=== PATIENT | male | born 1970 | race Caucasian/White ===

== ENCOUNTER 2017-08-05 11:35 | Emergency (ER) | payer BC ==
--- NOTE | 2017-08-05 12:08 | EDM.PDOC ---
ED HPI GENERAL MEDICAL PROBLEM - General Chief Complaint: Neuro Symptoms/Deficits Stated Complaint: VISION PROBLEMS Time Seen by Provider: 08/05/17 12:07 Source of Information: Reports: Patient History Limitations: Reports: No Limitations - History of Present Illness INITIAL COMMENTS - FREE TEXT/NARRATIVE: pt does hav a problem with etoh. He did drink last nite. He got up this am and he had numbness in his tongue and was seeing double in his rt eye. Onset: Today Duration: Hour(s): Location: Reports: Head, Other ( numbness in his tongue. ) Associated Symptoms: Reports: Weakness, Other ( Pt feels very unstable when he tries to walk and ambulate. ) Denies Pain Score (Numeric/FACES): 0 - Related Data Allergies Allergy/AdvReac Type Severity Reaction Status Date / Time No Known Allergies Allergy Verified 08/05/17 11:46 Home Meds: Home Meds NK [No Known Home Meds] 08/05/17 [History] Past Medical History Cardiovascular History: Reports: Hypertension Gastrointestinal History: Reports: Other (See Below) Other Gastrointestinal History: occasional constipation ELIVATED LIVER ENZYMES. Musculoskeletal History: Reports: Fracture Other Musculoskeletal History: nose Psychiatric History: Reports: Addiction, Other (See Below) Other Psychiatric History: Working on aLCHOLISM. Hematologic History: Reports: Anemia, Blood Transfusion(s) Dermatologic History: Reports: Other (See Below) Other Dermatologic History: face rash - Past Surgical History GI Surgical History: Reports: Other (See Below) Other GI Surgeries/Procedures: spleenectomy. Social & Family History - Tobacco Use Used Tobacco, but Quit: No Tobacco Use Comment: Chew daily Second Hand Smoke Exposure: No - Caffeine Use Caffeine Use: Reports: Coffee - Alcohol Use Days Per Week of Alcohol Use: 0 - Recreational Drug Use Recreational Drug Use: No ED ROS GENERAL - Review of Systems Review Of Systems: See Below Constitutional: Reports: No Symptoms HEENT: Reports: Vision Change, Other (numbness in the tongue. ) Respiratory: Reports: No Symptoms Cardiovascular: Reports: No Symptoms Endocrine: Reports: No Symptoms GI/Abdominal: Reports: No Symptoms : Reports: No Symptoms Musculoskeletal: Reports: No Symptoms Skin: Reports: No Symptoms Neurological: Reports: Other (pt feels off balance. He has double vision in his rt eye, numbness in his tongue. ) Psychiatric: Reports: Anxiety, Other ( chronic etoh problem off and on. ) ED EXAM, NEURO - Physical Exam Exam: See Below Text/Narrative:: pt arrived with double vision in his rt eye. At first he had numbness in his tongue. Exam Limited By: No Limitations General Appearance: Alert, Anxious, Mild Distress, Other ( pupils are equal and reactive. On fundiscopic exam there is no hemmorage and the discs look good. ) Ears: Normal TMs Nose: Normal Inspection Throat/Mouth: Normal Inspection Head Exam: Atraumatic Neck: Normal Inspection Respiratory/Chest: No Respiratory Distress Cardiovascular: Regular Rate, Rhythm GI/Abdominal: Soft, Non-Tender (Male) Exam: Deferred Rectal (Males) Exam: Deferred Neurological: Alert Back Exam: Normal Inspection Extremities: Normal Inspection Psychiatric: Normal Affect Course - Vital Signs Last Recorded V/S: Last Vital Signs Temp 36.2 C 08/05/17 11:57 Pulse 63 08/05/17 13:20 Resp 14 08/05/17 13:20 BP 174/78 H 08/05/17 13:20 Pulse Ox 94 L 08/05/17 13:20 Orthostatic Blood Pressure [ 149/107 Standing] Orthostatic Blood Pressure [ 144/107 Sitting] Orthostatic Blood Pressure [ 149/96 Supine] - Orders/Labs/Meds Orders: Active Orders 24 hr Category Date Time Status EKG Documentation Completion [RC] ASDIRECTED Care 08/05/17 12:31 Active UA W/MICROSCOPIC [URIN] Urgent Lab 08/05/17 11:50 Uncollected Sodium Chloride 0.9% [Normal Saline] 1,000 ml Med 08/05/17 12:30 Active IV ASDIRECTED EKG 12 Lead [EK] Routine Ther 08/05/17 12:31 Ordered Medication Orders Sodium Chloride (Normal Saline) 1,000 mls @ 500 mls/hr IV ASDIRECTED PURVI Last Admin: 08/05/17 13:08 Dose: 500 mls/hr Labs: Laboratory Tests 08/05/17 08/05/17 08/05/17 Range/Units 11:55 11:55 12:06 WBC 7.1 (4.5-11.0) K/uL RBC 4.60 (4.30-5.90) M/uL Hgb 16.0 H (12.0-15.0) g/dL Hct 45.0 (40.0-54.0) % MCV 98 (80-98) fL MCH 35 H (27-31) pg MCHC 36 (32-36) % Plt Count 108 L (150-400) K/uL Neut % (Auto) 39 (36-66) % Lymph % (Auto) 43 (24-44) % Bates % (Auto) 12 H (2-6) % Eos % (Auto) 5 H (2-4) % Baso % (Auto) 1 (0-1) % Sodium 140 (140-148) mmol/L Potassium 3.4 L (3.6-5.2) mmol/L Chloride 104 (100-108) mmol/L Carbon Dioxide 25 (21-32) mmol/L Anion Gap 14.4 H (5.0-14.0) mmol/L BUN 7 (7-18) mg/dL Creatinine 0.9 (0.8-1.3) mg/dL Est Cr Clr Drug Dosing 93.38 mL/min Estimated GFR (MDRD) > 60 (>60) Glucose 101 (74-106) mg/dL Calcium 8.8 (8.5-10.1) mg/dL Total Bilirubin 1.1 H (0.2-1.0) mg/dL AST 182 H (15-37) U/L ALT 70 (12-78) U/L Alkaline Phosphatase 108 (46-116) U/L Total Protein 7.3 (6.4-8.2) g/dL Albumin 3.4 (3.4-5.0) g/dL Globulin 3.9 H (2.3-3.5) g/dL Albumin/Globulin Ratio 0.9 L (1.2-2.2) Ethyl Alcohol 212 mg/dL Meds: Medications Generic Name Dose Route Start Last Admin Trade Name Freq PRN Reason Stop Dose Admin Sodium Chloride 1,000 mls @ 500 mls/hr 08/05/17 12:30 08/05/17 13:08 Normal Saline IV 500 mls/hr ASDIRECTED PURVI Administration Discontinued Medications Generic Name Dose Route Start Last Admin Trade Name Freq PRN Reason Stop Dose Admin Lorazepam 0.5 mg 08/05/17 13:21 08/05/17 13:29 Ativan PO 08/05/17 13:22 0.5 mg ONETIME ONE Administration - Re-Assessments/Exams Free Text/Narrative Re-Assessment/Exam: 08/05/17 13:22 pt was found to have a etoh level of .212. He sates he did not drink this am. He is feeling a little agitated and restless tonight. He feels like his vision is improving. His cat scan of the head is neg. He was given ativan .5 po. He has some elevation in his liver enzymes. Departure - Departure Time of Disposition: 14:34 Disposition: Home, Self-Care 01 Condition: Fair Clinical Impression: Double vision, Intoxication, Dehydration - Discharge Information Referrals: PCP,None [Primary Care Provider] - Forms: ED Department Discharge Care Plan Goals: If persistent double vision keep appt at the [facility] at 9 thirty tomorrow, avoid drinking cont with support groups.( pt was offered treatment and he did have a neg cat scan of the head - My Orders Last 24 Hours: My Active Orders 08/05/17 11:50 UA W/MICROSCOPIC [URIN] Urgent 08/05/17 12:30 Sodium Chloride 0.9% [Normal Saline] 1,000 ml IV ASDIRECTED 08/05/17 12:31 EKG Documentation Completion [RC] ASDIRECTED EKG 12 Lead [EK] Routine - Assessment/Plan Last 24 Hours: My Active Orders 08/05/17 11:50 UA W/MICROSCOPIC [URIN] Urgent 08/05/17 12:30 Sodium Chloride 0.9% [Normal Saline] 1,000 ml IV ASDIRECTED 08/05/17 12:31 EKG Documentation Completion [RC] ASDIRECTED EKG 12 Lead [EK] Routine
[2017-08-05] MEDS ORDERED: Sodium Chloride 0.9% 1,000 ML IV SCH (12:30)
--- NOTE | 2017-08-05 12:43 | CT ---
CT head. Indication: Visual loss. Total DLP 762. Findings: No hemorrhage. No subacute territorial infarct. No mass effect. No midline shift. Vascular calcifications. Mastoid air cells are clear. Mucosal thickening within the left ethmoid air cells. Ca lvarium intact. Impression: 1. No acute intracranial process by CT
[2017-08-05] MEDS ORDERED: LORazepam 0.5 MG Tab PO ONE (13:21)
== END 2017-08-05 14:55 | disposition home or self-care (01) ==
LOC: JP.ED 11:35
DX: F10.129 Alcohol abuse with intoxication, unspecified (principal); Y90.7 Blood alcohol level of 200-239 mg/100 ml; H53.2 Diplopia; E86.0 Dehydration; I10 Essential (primary) hypertension; F17.220 Nicotine dependence, chewing tobacco, uncomplicated
CPT/HCPCS: 36415; 70450; 80053; 81001; 85025; 93005; 96360; 96361; 99285; A9270; G0480; J7040

== ENCOUNTER 2018-01-02 13:15 | Emergency (ER) | payer BC, OTHER ==
--- NOTE | 2018-01-02 14:21 | EDM.PDOCBH ---
ED HPI GENERAL MEDICAL PROBLEM - General Chief Complaint: Behavioral/Psych Stated Complaint: DEPRESSION Time Seen by Provider: 01/02/18 14:18 Source of Information: Reports: Patient, RN Notes Reviewed History Limitations: Reports: No Limitations - History of Present Illness INITIAL COMMENTS - FREE TEXT/NARRATIVE: 47-year-old gentleman presents to the emergency department today via law enforcement for psychiatric evaluation. At this time he denies suicidal ideation. Does admit that he had suicidal ideation earlier he had been consuming alcohol last night he did call the crisis line for suicidal ideation he had also been on the phone talking to his sister unfortunately when the crisis line call back they could not reach him law enforcement was then called body mechanic's department arrived and brought him to the emergency department for further evaluation. - Related Data Allergies Allergy/AdvReac Type Severity Reaction Status Date / Time No Known Allergies Allergy Verified 01/02/18 13:58 Home Meds: Home Meds NK [No Known Home Meds] 08/05/17 [History] Past Medical History Cardiovascular History: Reports: Hypertension Gastrointestinal History: Reports: Other (See Below) Other Gastrointestinal History: occasional constipation ELIVATED LIVER ENZYMES. Musculoskeletal History: Reports: Fracture Other Musculoskeletal History: nose Psychiatric History: Reports: Addiction, Developmental Delay, Suicidal Ideation , Other (See Below) Other Psychiatric History: Working on aLCHOLISM. Hematologic History: Reports: Anemia, Blood Transfusion(s) Dermatologic History: Reports: Other (See Below) Other Dermatologic History: face rash - Past Surgical History GI Surgical History: Reports: Other (See Below) Other GI Surgeries/Procedures: spleenectomy. Social & Family History - Caffeine Use Caffeine Use: Reports: Coffee - Alcohol Use Date of Last Drink: 12/26/17 Time of Last Drink: 04:00 - Recreational Drug Use Recreational Drug Use: No ED ROS GENERAL - Review of Systems Review Of Systems: See Below Constitutional: Reports: No Symptoms Respiratory: Reports: No Symptoms Cardiovascular: Reports: No Symptoms Psychiatric: Reports: Depression. Denies: Homicidal Ideation, Suicidal Ideation ED EXAM, BEHAVIORAL HEALTH - Physical Exam Exam: See Below Exam Limited By: No Limitations General Appearance: Alert, WD/WN, No Apparent Distress Respiratory/Chest: No Respiratory Distress, Lungs Clear, Normal Breath Sounds, No Accessory Muscle Use Cardiovascular: Regular Rate, Rhythm, No Murmur Psychiatric: Alert, Normal Cognition, Depressed Mood, Suicidal Plan, Suicidal Thoughts. No: Homicidal Thoughts, Tangential Thoughts, Auditory Hallucinations , Visual Hallucinations, Grandiose Thoughts, Pressured Speech, Paranoid Thoughts COURSE, BEHAVIORAL HEALTH COMP - Course Vital Signs: Last Vital Signs Temp 98.7 F 01/02/18 13:45 Pulse 112 H 01/02/18 13:45 Resp 16 01/02/18 13:45 BP 161/108 H 01/02/18 13:45 Pulse Ox 94 L 01/02/18 13:45 Orders, Labs, Meds: Active Orders 24 hr Category Date Time Status DRUG SCREEN, URINE [URCHEM] Stat Lab 01/02/18 14:16 Ordered UA W/MICROSCOPIC [URIN] Urgent Lab 01/02/18 14:26 Ordered Laboratory Tests 01/02/18 01/02/18 Range/Units 14:16 14:26 Urine Color Yellow Urine Appearance Clear Urine pH 7.0 (4.5-8.0) Ur Specific [place] 1.010 (1.008-1.030) Urine Protein Negative (NEGATIVE) mg/dL Urine Glucose (UA) Normal (NEGATIVE) mg/dL Urine Ketones Negative (NEGATIVE) mg/dL Urine Occult Blood Negative (NEGATIVE) Urine Nitrite Negative (NEGAITVE) Urine Bilirubin Negative (NEGATIVE) Urine Urobilinogen Normal (NORMAL) mg/dL Ur Leukocyte Esterase Negative (NEGATIVE) Urine RBC Not seen (0-5) Urine WBC Not seen (0-5) Ur Epithelial Cells Not seen Amorphous Sediment Not seen Urine Bacteria Not seen Urine Mucus Rare Urine Opiates Screen Negative (NEGATIVE) Ur Oxycodone Screen Negative (NEGATIVE) Urine Methadone Screen Negative (NEGATIVE) Ur Propoxyphene Screen Negative (NEGATIVE) Ur Barbiturates Screen Negative (NEGATIVE) Ur Tricyclics Screen Negative (NEGATIVE) Ur Phencyclidine Scrn Negative (NEGATIVE) Ur Amphetamine Screen Negative (NEGATIVE) U Methamphetamines Scrn Negative (NEGATIVE) Urine MDMA Screen Negative (NEGATIVE) U Benzodiazepines Scrn Negative (NEGATIVE) U Cocaine Metab Screen Negative (NEGATIVE) U Marijuana (THC) Screen Negative (NEGATIVE) Departure - Departure Time of Disposition: 16:21 Disposition: Home, Self-Care 01 Condition: Fair Clinical Impression: Depressive disorder, Suicidal ideation - Discharge Information Referrals: PCP,None [Primary Care Provider] - Forms: ED Department Discharge Additional Instructions: With counseling within the community, please consult your AA sponsor, call or return emergency department worsening of symptoms - My Orders Last 24 Hours: My Active Orders 01/02/18 14:16 DRUG SCREEN, URINE [URCHEM] Stat 01/02/18 14:26 UA W/MICROSCOPIC [URIN] Urgent - Assessment/Plan Last 24 Hours: My Active Orders 01/02/18 14:16 DRUG SCREEN, URINE [URCHEM] Stat 01/02/18 14:26 UA W/MICROSCOPIC [URIN] Urgent Plan: Assessment Acuity = acute Site and laterality = depression with suicidal ideation under the influence of alcohol Etiology = major depressive disorder Manifestations = none Location of injury = Home Lab values = urinalysis negative urine drug screen also negative Plan Mental health crisis team was contacted they did come for an evaluation please see their note for details recommendations at this time are a safety contract referrals to counseling I within the community he is going to get in touch with his alcoholic anonymous counselor and family members will be home this evening therefore he is discharged to home This note was dictated using [employer] voice recognition software please call with any questions on syntax or grammar.
== END 2018-01-02 16:51 | disposition home or self-care (01) ==
LOC: JP.ED 13:15
DX: F32.9 Major depressive disorder, single episode, unspecified (principal); R45.851 Suicidal ideations; I10 Essential (primary) hypertension
CPT/HCPCS: 80305; 81001; 99284